=== PATIENT | male | born 1950 | race African-American/Black ===

== ENCOUNTER 2017-01-15 06:12 | Emergency (ER) | payer OTHER ==
[~2017-01-15] VITALS: Ht 175.3 cm; Wt 81.0 kg
[2017-01-15 09:34] LABS: *AMPHETAMINES SCREEN URINE NEGATIVE (NEGATIVE); *BARBITURATES SCREEN URINE NEGATIVE (NEGATIVE); *BENZODIAZEPINES SCREEN URINE NEGATIVE (NEGATIVE); *COCAINE SCREEN URINE PRESUMTIVE POSITIVE (NEGATIVE); CANNABINOID URINE SCREEN PRESUMTIVE POSITIVE (NEGATIVE); ECSTASY MDMA SCREEN URINE NEGATIVE (NEGATIVE); METHADONE URINE SCREEN NEGATIVE (NEGATIVE); OPIATES URINE SCREEN NEGATIVE (NEGATIVE); PHENCYCLIDINE URINE SCREEN NEGATIVE (NEGATIVE)
[2017-01-15] MEDS ORDERED: KETOROLAC 60MG/2ML VIAL IM NR (10:00)
[2017-01-15 10:39] VITALS: BP 118/78
== END 2017-01-15 11:09 | disposition home or self-care (01) ==
LOC: ER 06:16
DX: R51 Headache (principal); F14.10 Cocaine abuse, uncomplicated; F12.10 Cannabis abuse, uncomplicated
CPT/HCPCS: 70450; 80305; 99285; J1885